=== PATIENT | male | born 1970 | race Two or more races ===

== ENCOUNTER 2020-04-13 07:11 | Inpatient (IN) | payer BC, OTHER, SELFPAY ==
[2020-04-13] VITALS (30 sets, daily range): BP systolic 101–126; BP diastolic 52–78
[~2020-04-13] VITALS: Ht 180.3 cm; Wt 78.3 kg
[2020-04-13] MEDS ORDERED: ZINC SULFATE 220mg CAP or TAB PO ONE (07:45)
[2020-04-13] MEDS ORDERED: ASCORBIC ACID 500 MG TAB PO ONE (07:45)
[2020-04-13] MEDS ORDERED: DexAMETHasone SOD PHOS 10MG/1ML VIAL INJ IV ONE (07:45)
[2020-04-13] MEDS ORDERED: hydrOXYchloroQUINE SULFATE 200 MG TAB PO ONE (07:45)
[2020-04-13] MEDS ORDERED: AZITHROMYCIN 500MG/ 250ML 250 ML IV ONE ×2 (07:45→08:02)
[2020-04-13] MEDS ORDERED: cefTRIAXone 1GM/50ML D5W 50 ML IV ONE (07:45)
[2020-04-13] MEDS ORDERED: ACETAMINOPHEN 650 mg PER 20 mL UD PO ONE ×2 (08:00→19:30)
[2020-04-13] MEDS ORDERED: LORazepam 2MG/ML-1ML VIAL IV ONE (08:00)
[2020-04-13 08:43] LABS: Basophils # (auto) 0 10 ^3/uL (0-0.2); Basophils % (auto) 0.4 % (0.0-2.0); Eosinophils # (auto) 0 10 ^3/uL (0-0.8); Hematocrit 45.2 % (41.0-53.0); Hemoglobin 15.6 g/dL (13.5-17.5); Lymphocytes # (auto) 0.2 10 ^3/uL (0.4-5.4); Lymphocytes % (auto) 2.3 % (10.0-50.0); Mean Corpuscular Hemoglobin 31.3 pg (28.0-32.0); Mean Corpuscular Hgb Conc. 34.5 g/dL (32.0-36.0); Mean Corpuscular Volume 90.6 fL (80.0-100.0); Monocytes # (auto) 0.5 10 ^3/uL (0-1.3); Monocytes % (auto) 4.7 % (0.0-12.0); Neutrophils # (auto) 9.7 10 ^3/uL (1.6-8.6); Neutrophils % (auto) 92.6 % (37.0-80.0); Nucleated Red Blood Cells % 0.2 %; Platelet Count (auto) 324 10^3/uL (140-450); Red Blood Cells 4.99 10^6/uL (4.5-5.90); Red Cell Distribution Width 13.8 % (11.8-14.3); White Blood Cell 10.5 10^3/uL (4.4-10.8)
[2020-04-13 08:56] LABS: Albumin 2.7 g/dL (3.4-5.0); Calcium 8.4 mg/dL (8.5-10.1); Potassium 3.6 mmol/L (3.5-5.1)
[2020-04-13 09:02] LABS: Lactic Acid w/Reflex 3.5 mmol/L (0.4-2.0)
[2020-04-13 09:03] LABS: Bilirubin, Total 1.1 mg/dL (0.2-1.0); Total Protein 7.6 g/dL (6.4-8.2)
[2020-04-13] MEDS ORDERED: MORPHINE SULF INJ 2 MG/ML SYRINGE 1ML IV PRN (09:45)
[2020-04-13] MEDS ORDERED: LORazepam 0.5 MG TAB PO PRN (09:45)
[2020-04-13] MEDS ORDERED: NITROGLYCERIN 0.4 MG SL TAB SL PRN (09:45)
[2020-04-13] MEDS ORDERED: FUROSEMIDE 20 MG/2 ML VIAL IV ONE (09:45)
[2020-04-13] MEDS ORDERED: DEXTROSE (50%) 50ML SYRG IV PRN (09:45)
--- NOTE | 2020-04-13 11:00 | NUR ---
REPORT REPORT RECEIVED FROM WELL LOGGING CAPTAIN MUD ANALYSIS.
--- NOTE | 2020-04-13 11:15 | NUR ---
Pt being admitted to ICU AUSTIN FERMIN admitted to ICU via gurney on ophthalmic medical assistant, and portable 02. Patient transfered to bed, connected to ICU monitoring and oxygen, and weighed by [facility]. Patient oriented to Nina Burnett, primary RN, unit, room, bed, and unit policies regarding patient care and visiting hours. All questions and concerns addressed, patient verbalized understanding. NOTE: PT IN ISOLATION FOR + COVID. PT AWAKE AND A/O X4. ABLE TO HELP REPSOTION SELF. PT ON NRB MASK AT 15 L/M WITH O2 SAT OF 89%. PT GOING TO BE PLACED ON HGH LOW O2. CALLED RESPIRATORY TO APPLY. RR 35-40. TELE ST AT 109. FEBRILE AT 100.9 RECTAL. Addendum: 04/13/20 at 2057 by Nina Burnett, ISAAK LUNGS CLEAR BUT VERY DIMINISHED THROUGHOUT. PT VERY SOB EVEN AT REST. PT HAS REFUSED TO BE INTUBATED AND MD/[facility] ADMINISTRATOR AWARE. . CHANGED TO HIGH FLOW O2 BY RT. KAT AT 60 L FLOW AND WITH 100% FIO2. ABD SOFT WITH HYPOACTIVE BOWEL SOUNDS. PER PT HE HAS HAD A VERY POOR APPETITE. LAST BM WAS YESTERDAY. VOIDING [place] AT HOME AND WITH A SWEENEY CATHETER PLACED HERE. CONTINUE TO MONITOR.
[2020-04-13 11:20] LABS: Magnesium 2.4 mg/dL (1.6-2.6)
[2020-04-13] MEDS ORDERED: PIPERACILLIN-TAZOB 3.375GM 100 ML IV SCH (12:00)
[2020-04-13] MEDS: ACCU-CHEK COMFORT CURVE STRIP VI SCH ×3 (13:20→22:00)
[2020-04-13] MEDS: InsuLIN REG 1unit/0.01ml Soln (100units/ml) SC SCH ×3 (13:23→21:54)
[2020-04-13 13:25] LABS: CRP High Sensitivity 37.39 mg/dL (< 0.3)
[2020-04-13] MEDS ORDERED: REMDESIVIR 200 MG in NS 210ml LOADING DOSE ADULT IV ONE ×2 (13:30→18:00)
[2020-04-13] MEDS: DOXYCYCLINE 100 MG TAB/CAP PO SCH ×2 (13:32→22:02)
[2020-04-13] MEDS: ASCORBIC ACID 1,000 MG TAB PO SCH (13:33)
[2020-04-13] MEDS: ZINC SULFATE 220mg CAP or TAB PO SCH (13:33)
[2020-04-13] MEDS: ENOXAPARIN SOD 80 MG/0.8ML SYRINGE SC SCH ×2 (13:34→22:00)
[2020-04-13] MEDS: CHOLECALCIFEROL (VITD3) 1,000UNIT=25mCg TAB PO SCH (13:47)
--- NOTE | 2020-04-13 13:50 | NUR ---
HAVE PROVIDED THE PT WITH THE CONSENT FOR ADMINISTRATION OF REMDESEVIR AND AFTER HE HAS READ IT THROUGH, PT STATES HE DOES NOT WANT TO TAKE THIS MEDICATION. ISAAK FLORES, AT THE BEDSIDE TO EXPLAIN THE MEDS WE HAE FOR HIM AND HE TOOK EVERYTHING BUT IS REFUSING THE REMDESEVIR. . CALLED AND NOTIFIED ROBI URIARTE NP. Addendum: 04/13/20 at 1724 by Nina Burnett RN ISAAK FLORES, TRANSLATED FOR ME PT IS FRISIAN SPEAKING .
[2020-04-13] MEDS: PIPERACILLIN-TAZOB 3.375GM 100 ML IV SCH ×2 (13:53→21:45)
[2020-04-13] MEDS ORDERED: ALBUTEROL SULF HFA 90MCG INH 200DOSE IN SCH (14:00)
[2020-04-13] MEDS: ALBUTEROL SULF 2.5 MG/0.5ML(0.5%) NEB SOLN NEB SCH ×2 (14:25→22:36)
[2020-04-13] MEDS: IPRATROPIUM BROM 0.5 MG/2.5ML INH SOL NEB SCH ×2 (14:25→22:36)
--- NOTE | 2020-04-13 14:30 | NUR ---
PT ATE ONLY THE FRUIT FROM HIS LUNCH AND IS DRINKING WATER. PT STATES "POOR APPETITE".
--- NOTE | 2020-04-13 16:32 | NUR ---
FAMILY UPDATED ON PATIENT'S STATUS REGARDING MATTHEW URIARTE REQUEST FOR CONFERENCE CALL WITH PATIENT, PATIENT'S SPOUSE AND NURSE TO TRANSLATE MEDICAL TREATMENT (THIS NURSE SANDRA MULLIGAN IS HELPING BEDSIDE NURSE VANDANA DURING TRANSLATION PROCESS). THIS NURSE SPOKE WITH PATIENT'S SON DMITRI HICKMAN AFTER PASSWORD VERIFICATION AND UPDATED ON PATIENT'S CURRENT STATUS, MEDICAL TREATMENT RECOMMENDATIONS AND PATIENT'S REFUSALS WELL MD'S REQUEST FOR CONFERENCE CALL TO CLARIFY THEIR UNDERSTANDING OF MEDICAL TREATMENT RECOMMENDED. DMITRI VERBALIZED UNDERSTANDING AND PROVIDED THIS NURSE WITH PATIENT'S SPOUSE NUMBER - JANUSZ . TELEPHONE CALL WAS MADE WITH JANUSZ AND UPDATED ON PATIENT STATUS WELL PREVIOUSLY DISCUSSED WITH DMITRI IN [place]. JANUSZ VERBALIZED UNDERSTANDING AND WILL AWAITING CALL FROM STAFF. MATTHEW DAWSON.
--- NOTE | 2020-04-13 17:10 | NUR ---
AT BEDSIDE ROBI URIARTE AT BEDSIDE ALONG WITH SANDRA-RN, VANDANA-ISAAK AND PATIENT'S SPOUSE JANUSZ OVER CONFERENCE CALL. MEDICAL TREATMENTS, RISKS AND BENEFITS WERE EXPLAINED TO BOTH PATIENT AND SPOUSE, ALL QUESTIONS AND CONCERNS ADDRESSED, BOTH PATIENT AND SPOUSE JANUSZ VERBALIZED UNDERSTANDING AND AGREED TO MOVE FORWARD WITH RECOMMENDED TREATMENTS. PATIENT WILL SIGN AUTHORIZATION FORMS FOR MEDICATION ADMINISTRATION.
[2020-04-13] MEDS: ACETAMINOPHEN 500 MG TAB PO PRN (17:45)
--- NOTE | 2020-04-13 18:00 | NUR ---
CONFERENCE HELD AT THE BEDSIDE WITH ROBI URIARTE NP, ISAAK FLORES, INDUSTRIAL HYGENIST, MYSELF, AND PT'S AND SON ON A CONFERENCE CALL WITH US. RISKS AND BENEFITS OF MEDS EXPLAINED TO FAMILY AND PT, BY MANAGER UNIVERSITY, AND SEVERITY OF PT'S ILLNESS AND POSSIBLE IF MEDS ARE NOT GIVEN. MANAGER UNIVERSITY ANSWERED QUESTIONS FROM THE PT AND PT'S FAMILY. THEY , PT, AND SON, ALL AGREED TO PROCEED WITH ADMINISTERING THE MEDICINES FOR COVID. WILL HAVE PT SIGN CONSENT , NOTIFY PHARMACIST, AND OBTAIN ORDERED MEDS.
--- NOTE | 2020-04-13 18:30 | NUR ---
THERE IS A RECOMMENDATION TO PRONE THE PT TOLERATED, BUT PT IS ON HIGH FLOW O2 AT 100 % AND WITH A 60L FLOW AND CANNOT TOLERATE THE HOB DOWN.
--- NOTE | 2020-04-13 18:45 | NUR ---
PT IN AGREEMENT TO PROCEED WITH MEDICATION TREATMENT FOR COVID. ADMINISTERING REMDESIVIR . INSTRUCTED PT TO NOTIFY THE RN FOR ANY NEW SYMPTOMS. HE EXPRESSED UNDERSTANDING. Addendum: 04/13/20 at 2020 by Nina Burnett RN GIVEN DINNER BUT PT "NOT HUNGRY".
[2020-04-13] MEDS ORDERED: methylPREDNISolone SOD SUCC 40 MG/ML VL IV ONE (19:30)
[2020-04-13] MEDS ORDERED: diphenhdrAMINE HCL 50 MG/1 ML VL IV ONE (19:30)
--- NOTE | 2020-04-13 19:30 | NUR ---
REPORT REPORT GIVEN TO CYNTHIA RNNGOC. CHECK ON PT DONE AT THE WINDOW.
--- NOTE | 2020-04-13 20:00 | NUR ---
Opening Shift Note: A&Ox4, resting in bed. Primary language is Zimbabwean: translation provided by CCT. Currently on 60 L/100% FiO2 high flow cannula; patient does not wear oxygen at home; pain level 0/10; currently bedrest, at baseline patient ambulates independently without the use of assistive devices. Bed locked in lowest position, side rails up x2, and call light within reach. Patient is positive for COVID-19; all precautions in place. Skin intact. IV 20 g left forearm IID inserted on 04/13/20. Fishman catheter inserted on 04/13/20 for strict I/O. Patient is a DNI; paperwork signed in the front of patient's hard chart. POC discussed and questions answered. Will continue to round and reposition prn.
[2020-04-13] MEDS: TOCILIZUMAB 400 MG in SODIUM CHL 0.9% 80 ML IV SCH (20:30)
[2020-04-13] MEDS: methylPREDNISolone SOD SUCC 40 MG/ML VL IV SCH (22:00)
[2020-04-13 22:02] LABS: Urine Bacteria NONE SEEN /hpf (None Seen); Urine Blood 2+ /uL (Negative); Urine Hyaline Cast FEW /lpf (0 - 2); Urine Mucus FEW (None Seen); Urine Specific Gravity 1.042 (1.001-1.035); Urine WBC 4 /hpf (0 - 3)
[2020-04-13 22:19] LABS: Amphetamine Screen, Urine NEGATIVE (NEGATIVE); Barbiturate Scree,Urine NEGATIVE (NEGATIVE); Benzodiazephine Screen, Urine NEGATIVE (NEGATIVE); Cannabinoid Screen, Urine NEGATIVE (NEGATIVE); Cocaine Screen, Urine NEGATIVE (NEGATIVE); Opiate Scree,Urine NEGATIVE (NEGATIVE); Phencyclidine Screen, Urine NEGATIVE (NEGATIVE)
[2020-04-13 22:23] LABS: Alcohol, Urine < 3.0 mg/dL (0-10)
--- NOTE | 2020-04-13 22:39 | NUR ---
Respiratory note: AT BEDSIDE FOR MED NEB TX AND HFNC CHECK. TX GIVEN VIA AEROGEN. NO ADVERSE REACTION NOTED. ON ASSESSMENT PT IS NOTED TO BE DIAPHORETIC BUT NOT SOB. PT ICELANDIC SPEAKER ONLY. PT COMMUNICATED HE IS NOT BRINGING UP MUCH PHLEGM AND HIS CHEST DOES NOT HURT WHEN HE BREATHES. WILL CONTINUE TO MONITOR.
[2020-04-14] VITALS (47 sets, daily range): BP systolic 101–129; BP diastolic 62–81
[2020-04-14] MEDS ORDERED: FUROSEMIDE 20 MG/2 ML VIAL IV ONE (00:15)
[2020-04-14] MEDS: ACETAMINOPHEN 500 MG TAB PO PRN ×2 (03:00→20:40)
[2020-04-14] MEDS: PIPERACILLIN-TAZOB 3.375GM 100 ML IV SCH ×4 (03:00→21:30)
--- NOTE | 2020-04-14 03:15 | NUR ---
Respiratory note: LPM INCREASED VIA HFNC, NOW AT 70LPM STILL ON 100%. PTS SATS 88-90%.
--- NOTE | 2020-04-14 03:30 | NUR ---
Page to pianos and organs salesperson hospitalist: Patient is 70L/100% FiO2 with frequent drops in the low to mid 80%. RT notified. Page sent to pianos and organs salesperson hospitalist for bipap/cpap initiation. Patient is a DNI. Patient on CPAP mode saturation is mid to high 90s.
[2020-04-14 04:32] LABS: Basophils # (auto) 0 10 ^3/uL (0-0.2); Basophils % (auto) 0.2 % (0.0-2.0); Eosinophils # (auto) 0 10 ^3/uL (0-0.8); Hematocrit 44.1 % (41.0-53.0); Hemoglobin 14.8 g/dL (13.5-17.5); Lymphocytes # (auto) 0.6 10 ^3/uL (0.4-5.4); Lymphocytes % (auto) 4.7 % (10.0-50.0); Mean Corpuscular Hgb Conc. 33.6 g/dL (32.0-36.0); Monocytes # (auto) 0.5 10 ^3/uL (0-1.3); Monocytes % (auto) 3.8 % (0.0-12.0); Neutrophils % (auto) 91.3 % (37.0-80.0); Platelet Count (auto) 351 10^3/uL (140-450); Red Blood Cells 4.79 10^6/uL (4.5-5.90); Red Cell Distribution Width 13.8 % (11.8-14.3); White Blood Cell 13.2 10^3/uL (4.4-10.8)
[2020-04-14 04:47] LABS: Potassium 3.5 mmol/L (3.5-5.1)
[2020-04-14 04:52] LABS: BUN/Creatinine Ratio 19.7; Calcium 8.5 mg/dL (8.5-10.1)
[2020-04-14 05:01] LABS: Albumin 2.1 g/dL (3.4-5.0); Bilirubin, Total 0.6 mg/dL (0.2-1.0); Total Protein 7.2 g/dL (6.4-8.2)
[2020-04-14] MEDS: IPRATROPIUM BROM 0.5 MG/2.5ML INH SOL NEB SCH ×3 (05:41→22:29)
[2020-04-14] MEDS: ALBUTEROL SULF 2.5 MG/0.5ML(0.5%) NEB SOLN NEB SCH ×3 (05:41→22:29)
--- NOTE | 2020-04-14 06:00 | NUR ---
Patient bathe/linen change Patient refused bed bath. Skin integrity assessed for any changes. Linens and gown changed. Patient repositioned for comfort.
[2020-04-14] MEDS: ACCU-CHEK COMFORT CURVE STRIP VI SCH ×4 (06:41→20:40)
[2020-04-14] MEDS: InsuLIN REG 1unit/0.01ml Soln (100units/ml) SC SCH ×4 (06:41→20:39)
--- NOTE | 2020-04-14 07:00 | NUR ---
REPORT RECEIVED FROM QUALITY TECH NURSE. PATIENT RESTING IN BED AT THIS TIME. RESPIRATIONS EVEN BUT LABORED RR 43 PATIENT ON CPAP SATURATIONS 97% ON 100% FIO2. BED IN LOW POSITION, CALL LIGHT IN REACH. WILL CONTINUE TO MONITOR.
[2020-04-14] MEDS ORDERED: diphenhdrAMINE HCL 50 MG/1 ML VL IV ONE (07:30)
[2020-04-14] MEDS ORDERED: methylPREDNISolone SOD SUCC 40 MG/ML VL IV ONE (07:30)
[2020-04-14] MEDS ORDERED: ACETAMINOPHEN 650 mg PER 20 mL UD PO ONE (07:30)
[2020-04-14] MEDS: TOCILIZUMAB 400 MG in SODIUM CHL 0.9% 80 ML IV SCH (08:39)
[2020-04-14] MEDS ORDERED: MORPHINE SULF INJ 2 MG/ML SYRINGE 1ML IV PRN (08:45)
[2020-04-14] MEDS ORDERED: HYDROcodone-ACET 5/325MG TAB PO PRN (08:45)
--- NOTE | 2020-04-14 09:00 | NUR ---
ROBI URIARTE REGIONAL BUSINESS MANAGER AT BEDSIDE TO ASSESS PATIENT AND DISCUSS PLAN OF CARE. MD MADE AWARE OF PATIENTS AMOUNT OF TYLENOL GIVEN AT THIS TIME WITHIN A 24 HOUR PERIOD. PER ROBI NO MORE THAT 4GM TOTAL. REGIONAL BUSINESS MANAGER UPDATED PATIENTS SON KENZIE ON PATIENT STATUS. ALL QUESTIONS AND CONCERNS ADDRESSED AT THIS TIME. ALL ORDERS NOTED IN CHART.
[2020-04-14 09:41] LABS: CRP High Sensitivity 43.35 mg/dL (< 0.3)
[2020-04-14] MEDS: methylPREDNISolone SOD SUCC 40 MG/ML VL IV SCH ×2 (10:00→20:36)
[2020-04-14] MEDS: CHOLECALCIFEROL (VITD3) 1,000UNIT=25mCg TAB PO SCH (11:32)
[2020-04-14] MEDS: ZINC SULFATE 220mg CAP or TAB PO SCH (11:32)
[2020-04-14] MEDS: ASCORBIC ACID 1,000 MG TAB PO SCH (11:32)
[2020-04-14] MEDS: PANTOPRAZOLE 40 MG TAB PO SCH (11:32)
[2020-04-14] MEDS: ENOXAPARIN SOD 80 MG/0.8ML SYRINGE SC SCH ×2 (11:33→20:40)
[2020-04-14] MEDS: DOXYCYCLINE 100 MG TAB/CAP PO SCH ×2 (11:33→20:36)
--- NOTE | 2020-04-14 11:40 | NUR ---
DR HEBERT AT BEDSIDE TO ASSESS PATIENT AND DISCUSS PLAN OF CARE. ALL QUESTIONS AND CONCERNS ADDRESSED AT THIS TIME.
--- NOTE | 2020-04-14 12:15 | NUR ---
DR HEBERT UPDATED VIA TELEPHONE ON PATIENT STATUS. ALL QUESTIONS AND CONCERNS ADDRESSED AT THIS TIME. WILL CONTINUE TO MONITOR.
--- NOTE | 2020-04-14 13:15 | NUR ---
PT WAS TAKEN OFF BIPAP AND PLACED ON HFNC FLOW OF 60, FIO2 100. PT REPOSITIONED IN BED TO HIGH FOWLERS. PT ABLE TO EAT LUNCH. PT TOLERATED WELL. PT MAINTAINED 90%-93% O2 SATS WHILE EATING LUNCH.
--- NOTE | 2020-04-14 13:35 | NUR ---
PT WAS PLACED BACK ON BIPAP(CPAP MODE) ON SAME SETTINGS. WILL CONTINUE TO MONITOR PT.
[2020-04-14] MEDS: REMDESIVIR 100mg in NS 230ml DAILYx4DAYS (NO VENT) IV SCH (16:27)
[2020-04-14] MEDS: FUROSEMIDE 20 MG/2 ML VIAL IV SCH (17:33)
--- NOTE | 2020-04-14 19:45 | NUR ---
Opening Shift Note: A&Ox4, resting in bed. Primary language is Filipino: able to speak Korean as second language moderately. Currently on CPAP 100%, pressure 14; patient does not wear oxygen at home; pain level 0/10; currently bedrest, at baseline patient ambulates independently without the use of assistive devices. Bed locked in lowest position, side rails up x2, and call light within reach. Patient is positive for COVID-19; all precautions in place. Skin intact. IV 20 g left forearm IID inserted on 04/13/20. Fishman catheter inserted on 04/13/20 for strict I/O. Patient is a DNI; paperwork signed in the front of patient's hard chart. POC discussed and questions answered. Will continue to round and reposition prn.
--- NOTE | 2020-04-14 20:20 | NUR ---
Respiratory note: PT REQUESTED TO BE TAKEN OFF CPAP AND GO ON HFNC FOR DINNER. PT TOLERATING HFNC @ 60LPM, FIO2 90%. RN AT BEDSIDE WITH PT.
[2020-04-15] VITALS (40 sets, daily range): BP systolic 97–127; BP diastolic 60–85
[2020-04-15] MEDS: PIPERACILLIN-TAZOB 3.375GM 100 ML IV SCH ×4 (03:00→21:00)
[2020-04-15 04:48] LABS: Basophils # (auto) 0 10 ^3/uL (0-0.2); Basophils % (auto) 0.2 % (0.0-2.0); Eosinophils # (auto) 0 10 ^3/uL (0-0.8); Hematocrit 43.1 % (41.0-53.0); Hemoglobin 14.3 g/dL (13.5-17.5); Lymphocytes # (auto) 0.3 10 ^3/uL (0.4-5.4); Lymphocytes % (auto) 2.2 % (10.0-50.0); Mean Corpuscular Hemoglobin 30.5 pg (28.0-32.0); Mean Corpuscular Hgb Conc. 33.2 g/dL (32.0-36.0); Monocytes # (auto) 0.6 10 ^3/uL (0-1.3); Neutrophils # (auto) 14.4 10 ^3/uL (1.6-8.6); Neutrophils % (auto) 93.6 % (37.0-80.0); Platelet Count (auto) 436 10^3/uL (140-450); Red Blood Cells 4.69 10^6/uL (4.5-5.90); Red Cell Distribution Width 13.5 % (11.8-14.3); White Blood Cell 15.4 10^3/uL (4.4-10.8)
[2020-04-15 05:08] LABS: Potassium 3.4 mmol/L (3.5-5.1)
[2020-04-15 05:24] LABS: Albumin 2.2 g/dL (3.4-5.0); BUN/Creatinine Ratio 23.8; Bilirubin, Total 0.5 mg/dL (0.2-1.0); CRP High Sensitivity 18.1 mg/dL (< 0.3); Calcium 8.5 mg/dL (8.5-10.1); Total Protein 6.9 g/dL (6.4-8.2)
[2020-04-15] MEDS: FUROSEMIDE 20 MG/2 ML VIAL IV SCH ×2 (05:30→18:47)
[2020-04-15] MEDS: ACCU-CHEK COMFORT CURVE STRIP VI SCH ×4 (06:00→21:59)
[2020-04-15] MEDS: InsuLIN REG 1unit/0.01ml Soln (100units/ml) SC SCH ×4 (06:00→21:58)
--- NOTE | 2020-04-15 06:00 | NUR ---
Patient bathe/linen change Patient refused bed bath. Skin integrity assessed for any changes. Linens and gown changed. Patient repositioned for comfort.
[2020-04-15] MEDS: ALBUTEROL SULF 2.5 MG/0.5ML(0.5%) NEB SOLN NEB SCH ×4 (06:36→22:28)
[2020-04-15] MEDS: IPRATROPIUM BROM 0.5 MG/2.5ML INH SOL NEB SCH ×4 (06:36→22:28)
--- NOTE | 2020-04-15 10:50 | NUR ---
FAMILY UPDATED ON PATEINT'S STATUS PHONE CALL TO PATIENT'S FAMILY MADE PER PATIENT REQUEST HE IS ON BIPAP. PATIENT SHOWED TEXT MESSAGE HE RECEIVED FROM SON DMITRI WHERE IT STATES PATIENT'S SPOUSE IS FEELING WORSE TODAY". THIS NURSE NOTIFIED PATIENT THAT CALL WILL BE MADE TO DISCUSS SPOUSE'S OPTIONS. PATIENT NODDED HEAD "YES", IN AGREEMENT. THIS NURSE SPOKE WITH PATIENT'S SON DMITRI AND PATIENT'S JANUSZ IN [place] AND ENCOURAGED TO COME TO HOSPITAL IF CONDITION IS WORSENING. ALL FAMILY MEMBERS VERBALIZED UNDERSTANDING.
--- NOTE | 2020-04-15 11:23 | NUR ---
HOSPITALIST AT BEDSIDE DR SCHILLING UPDATED ON PATIENT'S STATUS, MORNING LABS AND PENDING ORAL MEDICATIONS UNTIL LUNCH WHEN BIPAP MACHINE WILL BE REMOVED AND REPLACED WITH OXYMIZER FOR LUNCH. ORDERS FOR POTASSIUM REPLACEMENT RECEIVED.
[2020-04-15] MEDS ORDERED: POTASSIUM CHL 20 Meq TABLET PO ONE (12:30)
[2020-04-15] MEDS: PANTOPRAZOLE 40 MG TAB PO SCH (12:32)
[2020-04-15] MEDS: ZINC SULFATE 220mg CAP or TAB PO SCH (12:32)
[2020-04-15] MEDS: methylPREDNISolone SOD SUCC 40 MG/ML VL IV SCH ×2 (12:32→21:56)
[2020-04-15] MEDS: DOXYCYCLINE 100 MG TAB/CAP PO SCH ×2 (12:33→21:56)
[2020-04-15] MEDS: CHOLECALCIFEROL (VITD3) 1,000UNIT=25mCg TAB PO SCH (12:33)
[2020-04-15] MEDS: ASCORBIC ACID 1,000 MG TAB PO SCH (12:33)
[2020-04-15] MEDS: ENOXAPARIN SOD 80 MG/0.8ML SYRINGE SC SCH ×2 (12:33→21:58)
--- NOTE | 2020-04-15 15:42 | NUR ---
PRONING/BM PATIENT PLACED ON BIPAP AND IN PRONE POSITION PER MD ORDERS. PATIENT ABLE TO TURN SELF WITH MINIMAL ASSISTANCE, TOLERATED WELL. PATIENT CLEANSED OF SMEAR BM PRIOR TO TURNING AND TOLERATED WELL. PATIENT VS - HR 95, O2 SATS 92% ON 45% FIO2, RR. 43 AND BP 113/74. PATIENT DENIES PAIN OR DISCOMFORT, THUMBS UP WHEN ASKED HOW HE IS DOING. CALL LIGHT WITHIN REACH. WILL CONTINUE TO MONITOR.
[2020-04-15] MEDS: REMDESIVIR 100mg in NS 230ml DAILYx4DAYS (NO VENT) IV SCH (16:30)
[2020-04-15] MEDS ORDERED: GABA300C10 PO (16:52)
[2020-04-15] MEDS ORDERED: ASPI-498 PO (16:52)
[2020-04-15] MEDS ORDERED: FOLI1TAB6 PO (16:52)
[2020-04-15] MEDS ORDERED: LEVO500T21 PO (16:52)
[2020-04-15] MEDS ORDERED: OME20T PO (16:53)
[2020-04-15] MEDS ORDERED: PANT40TA2 PO (16:53)
[2020-04-15] MEDS ORDERED: ROPI1TAB2 PO (16:54)
[2020-04-15] MEDS ORDERED: TIZA4TAB9 PO (16:55)
[2020-04-15] MEDS ORDERED: TRAM50TA2 PO (16:55)
[2020-04-15] MEDS ORDERED: CYAN500T15 PO (16:56)
[2020-04-15] MEDS ORDERED: TRAZ100T3 PO (16:56)
[2020-04-15] MEDS ORDERED: CALC-437 PO ×2 (16:59→17:00)
[2020-04-15] MEDS ORDERED: MULTLIQ38 OR (17:04)
--- NOTE | 2020-04-15 18:32 | NUR ---
Respiratory note: RECEIVED PT ON BIPAP B6, BIPAP IS CONNECTED TO RED OUTLET AND O2 SOURCE ALARMS ARE SET AND AUDIBLE AMBU BAG AND MASK AT BEDSIDE. PT IN PRONE POSITION AT THIS TIME. CURRENT TEMP READS 99.0F. WILL CONTINUE TO MONITOR Q2H.
--- NOTE | 2020-04-15 19:00 | NUR ---
Opening Shift Note Assumed care of patient, awake and alert, Sao T[place]an speaking only. Primary RN speaks S[place] and updated patient on plan of care and answered all questions and concerns. No S/S of distress/SOB or pain. Instructed on POC and to call for assist PRN, will continue to monitor for changes Q1hr and PRN.
--- NOTE | 2020-04-15 20:20 | NUR ---
Respiratory note: ROUTINE VENT CHECK DONE FROM DOOR, PER COVID PRECAUTIONS. PT NOT IN PRONE POSITION ANYMORE DID NOT TOLERATE MORE AT THIS TIME, WILL ATTEMPT T/O NIGHT TO PRONE AGAIN. WILL CONTINUE TO MONITOR. Addendum: 04/16/20 at 0045 by Cayla Doe, RT PT ON BIPAP NOT VENT. BIPAP CHECK WAS DONE FROM DOOR NOT VENT CHECK.
--- NOTE | 2020-04-15 22:28 | NUR ---
Respiratory note: AT BEDSIDE FOR ROUTINE BIPAP CHECK AND MED NEB TX. BS ARE DIMINISHED T/O, MED NEB TX GIVEN INLINE VIA AEROGEN. NO ADVERSE REACTION NOTED. WILL CONTINUE TO MONITOR.
[2020-04-16] VITALS (58 sets, daily range): BP systolic 101–124; BP diastolic 67–87
--- NOTE | 2020-04-16 00:32 | NUR ---
Respiratory note: ROUTINE BIPAP CHECK DONE FROM DOOR, PER COVID PRECAUTIONS. PT IS NOTED TO BE COMFORTABLY SLEEPING. PTS CURRENT TEMP READS 98.8F. WILL CONTINUE TO MONITOR.
--- NOTE | 2020-04-16 02:29 | NUR ---
Respiratory note: ROUTINE BIPAP CHECK DONE FROM DOOR, PER COVID-19 PRECAUTIONS. PT IS NOTED TO BE COMFORTABLY SLEEPING AT THIS TIME. PTS CURRENT TEMP READS 99.0F. WILL CONTINUE TO MONITOR.
[2020-04-16] MEDS: PIPERACILLIN-TAZOB 3.375GM 100 ML IV SCH ×4 (03:00→20:31)
--- NOTE | 2020-04-16 04:11 | NUR ---
Respiratory note: END OF SHIFT BIPAP CHECK DONE FROM DOOR DUE TO COVID-19 PRECAUTIONS, CURRENT TEMP READS 99.0F. NO CHANGES MADE WILL HAVE DAY SHIFT CONTINUE POC.
[2020-04-16 04:30] LABS: Eosinophils # (auto) 0 10 ^3/uL (0-0.8); Lymphocytes # (auto) 0.3 10 ^3/uL (0.4-5.4); Lymphocytes % (auto) 2.6 % (10.0-50.0); Neutrophils # (auto) 10.3 10 ^3/uL (1.6-8.6); White Blood Cell 11.1 10^3/uL (4.4-10.8)
[2020-04-16 04:33] LABS: Basophils # (auto) 0 10 ^3/uL (0-0.2); Basophils % (auto) 0.3 % (0.0-2.0); Hematocrit 43.1 % (41.0-53.0); Hemoglobin 14.6 g/dL (13.5-17.5); Mean Corpuscular Hemoglobin 31.2 pg (28.0-32.0); Mean Corpuscular Hgb Conc. 33.9 g/dL (32.0-36.0); Mean Corpuscular Volume 92.2 fL (80.0-100.0); Monocytes # (auto) 0.4 10 ^3/uL (0-1.3); Neutrophils % (auto) 93.1 % (37.0-80.0); Platelet Count (auto) 500 10^3/uL (140-450); Red Blood Cells 4.68 10^6/uL (4.5-5.90); Red Cell Distribution Width 13.5 % (11.8-14.3)
[2020-04-16 04:52] LABS: Calcium 8.6 mg/dL (8.5-10.1); Magnesium 2.8 mg/dL (1.6-2.6); Potassium 3.8 mmol/L (3.5-5.1)
[2020-04-16 04:54] LABS: BUN/Creatinine Ratio 33.8
[2020-04-16] MEDS: IPRATROPIUM BROM 0.5 MG/2.5ML INH SOL NEB SCH ×3 (05:57→22:03)
[2020-04-16] MEDS: ALBUTEROL SULF 2.5 MG/0.5ML(0.5%) NEB SOLN NEB SCH ×3 (05:57→22:03)
[2020-04-16] MEDS: FUROSEMIDE 20 MG/2 ML VIAL IV SCH ×2 (06:05→19:00)
[2020-04-16] MEDS: InsuLIN REG 1unit/0.01ml Soln (100units/ml) SC SCH ×4 (06:15→21:00)
[2020-04-16] MEDS: ACCU-CHEK COMFORT CURVE STRIP VI SCH ×4 (06:23→21:07)
--- NOTE | 2020-04-16 06:40 | NUR ---
Respiratory note: INCREASED FIO2 TO 600% POST ABG RESULT. RN AWARE.
--- NOTE | 2020-04-16 06:45 | NUR ---
FIO2 was increased to 60% d/t ABG results showing low PO2 levels.
--- NOTE | 2020-04-16 08:40 | NUR ---
AM ASSESSMENT COMPLETED. I SWITCHED PT FROM BIPAP TO HIGH FLOW AT 40L AT 90% FIO2 WHILE HE EATS HIS BREAKFAST. PT WAS REQUESTING HIS BREAKFAST TRAY. PT WAS HUNGRY THIS AM. LS CLEAR AND DIMINISHED THROUGH OUT.
--- NOTE | 2020-04-16 08:40 | NUR ---
Respiratory note: PT TAKEN OFF CPAP BY RN AND PLACED ON HFNC TO EAT BREAKFAST. PT APPEARS COMFORTABLE.PT DID NOT WANT TO GO BACK ON CPAP AFTER BREAKFAST. HE STATED HE FELT COMFORTABLE ON THE HFNC. WILL CONTINUE TO MONITOR PT. RN AWARE.
[2020-04-16] MEDS: methylPREDNISolone SOD SUCC 40 MG/ML VL IV SCH ×2 (10:06→21:21)
[2020-04-16] MEDS: ENOXAPARIN SOD 80 MG/0.8ML SYRINGE SC SCH ×2 (10:06→21:10)
[2020-04-16] MEDS: ASCORBIC ACID 1,000 MG TAB PO SCH (10:07)
[2020-04-16] MEDS: ZINC SULFATE 220mg CAP or TAB PO SCH (10:07)
[2020-04-16] MEDS: DOXYCYCLINE 100 MG TAB/CAP PO SCH ×2 (10:07→21:22)
[2020-04-16] MEDS: PANTOPRAZOLE 40 MG TAB PO SCH (10:08)
[2020-04-16] MEDS: CHOLECALCIFEROL (VITD3) 1,000UNIT=25mCg TAB PO SCH (10:08)
--- NOTE | 2020-04-16 11:43 | NUR ---
Nutrition Assessment Notes please see attached link for complete assessment Est. Energy Needs BW 84 [id number] kcal (25-30 kcal/kg BW), Est. Protein Needs: 84-100 gms/day (1.0-1.2 gms/kg BW). Addendum: 04/16/20 at [address] Amended: Links added.
--- NOTE | 2020-04-16 13:33 | NUR ---
DR. SCHILLING IN TO SEE PT. WANTS PT TO USE INCENTIVE SPIROMETER. NO OTHER ORDERS RECEIVED AT THIS TIME.
--- NOTE | 2020-04-16 14:00 | NUR ---
BM ELIMINATION PT HAD A LARGE BM. PT WAS C/O HAVING ABDOMINAL CRAMPING STATING THAT HE NEEDED TO MOVE HIS BOWELS THAT HE HAS BEEN CONSTIPATED SINCE ADMISSION. PT WAS ABLE TO MOVE HIS BOWELS WITHIN 10 MIN AFTER LAYING ON BED POOL. ASSISTED PT WITH HYGIENE. LINEN CHANGED AND REPOSITIONED FOR COMFORT.
--- NOTE | 2020-04-16 19:00 | NUR ---
Opening Shift Note Assumed care of patient, awake and alert. Patient updated on plan of care and answered all questions and concerns. No S/S of distress/SOB or pain. Instructed on POC and to call for assist PRN, will continue to monitor for changes Q1hr and PRN. Patient currently using high flow. Dr. Santoyo currently rounding on patient and wants patient placed back on CPAP.
[2020-04-16] MEDS: REMDESIVIR 100mg in NS 230ml DAILYx4DAYS (NO VENT) IV SCH (19:01)
[2020-04-17] VITALS (60 sets, daily range): BP systolic 101–120; BP diastolic 63–85
[2020-04-17] MEDS: PIPERACILLIN-TAZOB 3.375GM 100 ML IV SCH ×4 (03:00→21:01)
[2020-04-17 04:16] LABS: Basophils # (auto) 0 10 ^3/uL (0-0.2); Eosinophils # (auto) 0 10 ^3/uL (0-0.8); Lymphocytes # (auto) 0.3 10 ^3/uL (0.4-5.4); Lymphocytes % (auto) 3.4 % (10.0-50.0); Monocytes # (auto) 0.3 10 ^3/uL (0-1.3); Red Cell Distribution Width 13.7 % (11.8-14.3)
[2020-04-17 04:19] LABS: Basophils % (auto) 0.1 % (0.0-2.0); Hematocrit 46.3 % (41.0-53.0); Hemoglobin 15.3 g/dL (13.5-17.5); Mean Corpuscular Hemoglobin 30.5 pg (28.0-32.0); Mean Corpuscular Hgb Conc. 33.1 g/dL (32.0-36.0); Mean Corpuscular Volume 92.1 fL (80.0-100.0); Monocytes % (auto) 3.5 % (0.0-12.0); Neutrophils # (auto) 7.6 10 ^3/uL (1.6-8.6); Platelet Count (auto) 496 10^3/uL (140-450); Red Blood Cells 5.03 10^6/uL (4.5-5.90); White Blood Cell 8.2 10^3/uL (4.4-10.8)
[2020-04-17 04:39] LABS: Albumin 2.5 g/dL (3.4-5.0); Calcium 8.7 mg/dL (8.5-10.1); Potassium 3.9 mmol/L (3.5-5.1)
[2020-04-17 04:47] LABS: BUN/Creatinine Ratio 31.8; Bilirubin, Total 0.6 mg/dL (0.2-1.0); CRP High Sensitivity 5.44 mg/dL (< 0.3); Total Protein 6.7 g/dL (6.4-8.2)
[2020-04-17] MEDS: FUROSEMIDE 20 MG/2 ML VIAL IV SCH (05:37)
[2020-04-17] MEDS: InsuLIN REG 1unit/0.01ml Soln (100units/ml) SC SCH ×4 (05:52→22:20)
[2020-04-17] MEDS: ACCU-CHEK COMFORT CURVE STRIP VI SCH ×4 (06:01→22:20)
[2020-04-17] MEDS: IPRATROPIUM BROM 0.5 MG/2.5ML INH SOL NEB SCH ×3 (06:39→21:41)
[2020-04-17] MEDS: ALBUTEROL SULF 2.5 MG/0.5ML(0.5%) NEB SOLN NEB SCH ×3 (06:39→21:41)
--- NOTE | 2020-04-17 08:23 | NUR ---
TOOK PT OFF CPAP AND PLACED ON HIGH FLOW TO EAT BREAKFAST, SETTINGS 55LPM, FIO2 80%. HIGH FLOW UNIT PLUGGED INTO RED OUTLET, PT FITTED WITH SIZE MEDIUM CANNULA, NO SKIN BREAKDOWN NOTED. PT TOLERATING WELL, SITTING UP IN BED, NO DISTRESS NOTED. WILL CONTINUE TO MONITOR.
--- NOTE | 2020-04-17 09:40 | NUR ---
PT BACK ON CPAP TOOK PT OFF HIGH FLOW AND PLACED BACK ON CPAP PER PT'S REQUEST. PT TOLERATING WELL, RESTING IN BED WITH NO DISTRESS NOTED. ALARMS SET AND AUDIBLE. MASK PLACED WITH [id number] OVER NOSE/AROUND MOUTH, NO BREAKDOWN NOTED. RN AWARE OF CHANGES. WILL CONTINUE TO MONITOR.
[2020-04-17] MEDS: ENOXAPARIN SOD 80 MG/0.8ML SYRINGE SC SCH ×2 (10:28→21:52)
[2020-04-17] MEDS: methylPREDNISolone SOD SUCC 40 MG/ML VL IV SCH (10:28)
[2020-04-17] MEDS: DOXYCYCLINE 100 MG TAB/CAP PO SCH ×2 (10:29→21:52)
[2020-04-17] MEDS: PANTOPRAZOLE 40 MG TAB PO SCH (10:29)
[2020-04-17] MEDS: ZINC SULFATE 220mg CAP or TAB PO SCH (10:29)
[2020-04-17] MEDS: CHOLECALCIFEROL (VITD3) 1,000UNIT=25mCg TAB PO SCH (10:29)
[2020-04-17] MEDS: ASCORBIC ACID 1,000 MG TAB PO SCH (10:29)
--- NOTE | 2020-04-17 13:15 | NUR ---
ON HIGH FLOW TOOK PT OFF CPAP AND PLACED ON HIGH FLOW TO EAT LUNCH. ON SETTINGS: 40LPM, FIO2 80%. PT TOLERATING WELL, SITTING UP IN BED WITH NO S/S OF RESPIRATORY DISTRESS NOTED. HR 94, RR 26, SPO2 95%. RN AT BEDSIDE AND AWARE. WILL CONTINUE TO MONITOR.
--- NOTE | 2020-04-17 14:37 | NUR ---
DR. HEBERT ROUNDING ON PT. PT IN TO SEE PT. MD DISCUSSING POC WITH PT IN [place]. WILL DISCUSS POC WITH MD ONCE MD IS OUT OF PT'S ROOM.
--- NOTE | 2020-04-17 14:58 | NUR ---
PT BACK ON CPAP TOOK PT OFF HIGH FLOW AND PLACED BACK ON CPAP PER PT'S REQUEST. PT TOLERATING WELL, NO DISTRESS NOTED. MENDEB TX ADMINSTERED INLINE VIA AEROGEN, NO ADVERSE REACTIONS NOTED. ALARMS SET AND AUDIBLE. WILL CONTINUE TO MONITOR.
--- NOTE | 2020-04-17 15:05 | NUR ---
assessment Patient is a 50 year old male who is in ICU on Cpap trial. Per patients son Leo Yang [phone] who is patients emergency contact prior to admission patient lived home with family and was independent. Per Leo Patient patient was having shortness of breath and 911 was called. Patient was brought to ER and was noted to have a fever of 105.5 and patient was hypoxic. Patient had refused intubation. Per Leo patients PCP is Dr James in [place]. Leo informed me patient still works. Per Leo family thinks patient was exposed to Covid at work. Patient has tested positive for Covid 19. Family members are self isolating. Leo informed me patient does have insurance [employer]. Leo is contacting admitting with insurance information. I informed Leo that patients post discharge needs to be determined once patient is down graded from ICU and prior to discharge. Leo verbalized understanding. Addendum: 04/17/20 at 1513 by Lorie CHÁVEZ Amended: Links added.
--- NOTE | 2020-04-17 18:32 | NUR ---
RT NOTE ISAAK KOCH TOOK PT OFF CPAP AND PLACED ON HIGH FLOW TO BATHE AND EAT DINNER. ON SETTINGS: 40LPM, FIO2 80%. PT TOLERATING WELL, SITTING UP IN BED WITH NO S/S OF RESPIRATORY DISTRESS NOTED. RN AT BEDSIDE AND AWARE. WILL CONTINUE TO MONITOR. Addendum: 04/17/20 at 1833 by Judith Dixon RT Amended: Links added.
[2020-04-17] MEDS: REMDESIVIR 100mg in NS 230ml DAILYx4DAYS (NO VENT) IV SCH (18:58)
--- NOTE | 2020-04-17 19:00 | NUR ---
Opening Shift Note Assumed care of patient, awake and alert. Patient updated on plan of care and answered all questions and concerns. No S/S of distress/SOB or pain. Instructed on POC and to call for assist PRN, will continue to monitor for changes Q1hr and PRN. Patient currently using high flow.
--- NOTE | 2020-04-17 21:42 | NUR ---
RT NOTE PT REMOVED FROM HFNC SET AT 45L, 70% AND PLACED PT ON BIPAP #B6 ON CPAP MODE WITH MEDIUM MASK. PROTECTA-GEL IN PLACE. NO SKIN BREAKDOWN NOTED. BIPAP IS PLUGGED TO RED OUTLET. ALARMS ARE ON AND SET TO 7. PT CAN BE SEEN FROM CLOSED GLASS DOOR. BILATERAL BS ARE CLEAR/DIMINISHED. HHN GIVEN INLINE WITH 2.5 MG ALBUTEROL AND 0.5 MG ATROVENT VIA AEROGEN WITHOUT ADVERSE REACTION NOTED. PT APPEARS COMFORTABLE AT THIS TIME. CONT ORDERED. POX 96% Addendum: 04/17/20 at 2150 by Judith Dixon RT Amended: Links added.
[2020-04-17] MEDS: DexAMETHasone SOD PHOS 4 MG/1ML SDV INJ IV SCH (21:52)
--- NOTE | 2020-04-17 22:24 | NUR ---
RT NOTE PT ON BIPAP #B6 ON CPAP MODE WITH MEDIUM MASK. PROTECTA-GEL IN PLACE. NO SKIN BREAKDOWN NOTED. BIPAP IS PLUGGED TO RED OUTLET. ALARMS ARE ON AND SET TO 7. PT CAN BE SEEN FROM CLOSED GLASS DOOR. PT APPEARS COMFORTABLE AT THIS TIME. CONT ORDERED. POX 94% Addendum: 04/17/20 at 2228 by Judith Dixon RT Amended: Links added.
[2020-04-18] VITALS (41 sets, daily range): BP systolic 95–127; BP diastolic 63–85
--- NOTE | 2020-04-18 00:12 | NUR ---
RT NOTE PT ON BIPAP #B6 ON CPAP MODE WITH MEDIUM MASK. PROTECTA-GEL IN PLACE. NO SKIN BREAKDOWN NOTED. BIPAP IS PLUGGED TO RED OUTLET. ALARMS ARE ON AND SET TO 7. PT CAN BE SEEN FROM CLOSED GLASS DOOR. PT IS SLEEPING AND APPEARS COMFORTABLE AT THIS TIME. CONT ORDERED. POX 95% Addendum: 04/18/20 at 0012 by Judith Dixon RT Amended: Links added.
[2020-04-18] MEDS: PIPERACILLIN-TAZOB 3.375GM 100 ML IV SCH ×4 (02:31→20:42)
--- NOTE | 2020-04-18 02:33 | NUR ---
RT NOTE PT ON BIPAP #B6 ON CPAP MODE WITH MEDIUM MASK. PROTECTA-GEL IN PLACE. NO SKIN BREAKDOWN NOTED. BIPAP IS PLUGGED TO RED OUTLET. ALARMS ARE ON AND SET TO 7. PT CAN BE SEEN FROM CLOSED GLASS DOOR. RT AT BEDSIDE FOR MASK ADJUSTMENT AND FIO2 TITRATION. ISAAK SOLANO NOTIFIED THAT FIO2 WAS DECREASED TO 50% CONT ORDERED. POX 99% Addendum: 04/18/20 at 0242 by Judith Dixon RT Amended: Links added.
--- NOTE | 2020-04-18 04:13 | NUR ---
RT NOTE PT ON BIPAP #B6 ON CPAP MODE WITH MEDIUM MASK. PROTECTA-GEL IN PLACE. NO SKIN BREAKDOWN NOTED. BIPAP IS PLUGGED TO RED OUTLET. ALARMS ARE ON AND SET TO 7. PT CAN BE SEEN FROM CLOSED GLASS DOOR. CONT ORDERED. POX 95% Addendum: 04/18/20 at 0429 by Judith Dixon RT Amended: Links added.
[2020-04-18] MEDS: FUROSEMIDE 20 MG/2 ML VIAL IV SCH ×2 (06:00→18:12)
[2020-04-18] MEDS: InsuLIN REG 1unit/0.01ml Soln (100units/ml) SC SCH ×4 (06:22→21:14)
[2020-04-18] MEDS: ACCU-CHEK COMFORT CURVE STRIP VI SCH ×4 (06:26→20:55)
[2020-04-18] MEDS: ALBUTEROL SULF 2.5 MG/0.5ML(0.5%) NEB SOLN NEB SCH ×3 (06:28→22:31)
[2020-04-18] MEDS: IPRATROPIUM BROM 0.5 MG/2.5ML INH SOL NEB SCH ×3 (06:28→22:31)
--- NOTE | 2020-04-18 07:18 | NUR ---
REPORT RECEIVED FROM ART APPRAISER RN
--- NOTE | 2020-04-18 08:11 | NUR ---
XRAY AT BEDSIDE
--- NOTE | 2020-04-18 08:15 | NUR ---
PT TAKEN OFF CPAP, AND PLACED BACK ON HFNC 50L 70% FIO2 TO EAT BREAKFAST. PT TOLERATING CHANGE WELL. SPO2 98% ON 50L 70% FIO2, HR 103, RR 25, BS CLEAR BILATERALLY. WILL CONTINUE TO MONITOR PT
[2020-04-18] MEDS: PANTOPRAZOLE 40 MG TAB PO SCH (09:31)
[2020-04-18] MEDS: DexAMETHasone SOD PHOS 4 MG/1ML SDV INJ IV SCH ×2 (09:31→20:42)
[2020-04-18] MEDS: ENOXAPARIN SOD 80 MG/0.8ML SYRINGE SC SCH ×2 (09:31→20:40)
[2020-04-18] MEDS: ZINC SULFATE 220mg CAP or TAB PO SCH (09:31)
[2020-04-18] MEDS: CHOLECALCIFEROL (VITD3) 1,000UNIT=25mCg TAB PO SCH (09:31)
[2020-04-18] MEDS: ASCORBIC ACID 1,000 MG TAB PO SCH (09:31)
--- NOTE | 2020-04-18 10:08 | NUR ---
CPAP UNABLE TO CPAP PATIENT AT THIS TIME. PATIENT USING ACCESSORY MUSCLES, FORCEFUL BREATHING, RR HIGH 30'S, INCREASED BLOOD PRESSURE AND DECREASE IN OXYGEN SATURATION. Addendum: 04/18/20 at 1422 by Olaf Gutiérrez RN WRONG PATIENT
--- NOTE | 2020-04-18 10:32 | NUR ---
FAMILY-DISABILITY RN RENETTA GUATEMALAN SPEAKER SPOKE WITH REGARDING DISABILITY WHERE TO FIND FORMS ONLINE AND NEED TO BRING TO PRIMARY CARE PHYSICIAN. VERBALIZED UNDERSTANDING.
--- NOTE | 2020-04-18 12:18 | NUR ---
PATIENT DOING ACTIVE RANGE OF MOTIONS OF ARMS AND LEGS
--- NOTE | 2020-04-18 15:45 | NUR ---
PATIENT RESTING NO S/S OF DISTRESS NOTED
--- NOTE | 2020-04-18 20:00 | NUR ---
PT ON HI FLOW 50L FIO2 50%, [id number]%. SR ON THE MONITOR. AFEBRILE. SWEENEY CATHETER DRAINING YELLOW URINE VIA GRAVITY. POC DISCUSSED, PT STATED UNDERSTANDING. SAFETY PRECAUTIONS IN PLACE. WILL CONTINUE TO MONITOR.
[2020-04-19] VITALS (24 sets, daily range): BP systolic 97–112; BP diastolic 63–79
--- NOTE | 2020-04-19 00:20 | NUR ---
CPAP RT PLACED PT ON CPAP, ADJUSTED SETTINGS TO EPAP 10, FIO2 60%, O2SAT 93%, TOLERATING WELL. SAFETY PRECAUTIONS IN PLACE. WILL CONTINUE TO MONITOR.
--- NOTE | 2020-04-19 03:04 | NUR ---
BIPAP PT TOLERATING BIPAP, SETTINGS 16/6 BUR14 FIO2 75%, [id number]%. SAFETY PRECAUTIONS IN PLACE, WILL CONTINUE TO MONITOR.
[2020-04-19] MEDS: PIPERACILLIN-TAZOB 3.375GM 100 ML IV SCH ×4 (03:31→22:24)
[2020-04-19] MEDS: FUROSEMIDE 20 MG/2 ML VIAL IV SCH ×2 (06:05→17:35)
[2020-04-19] MEDS: ACCU-CHEK COMFORT CURVE STRIP VI SCH ×4 (06:17→22:24)
[2020-04-19] MEDS: InsuLIN REG 1unit/0.01ml Soln (100units/ml) SC SCH ×4 (07:00→22:25)
--- NOTE | 2020-04-19 07:17 | NUR ---
REPORT RECEIVED FROM JOB CHANGE CREW MEMBER RN
[2020-04-19] MEDS: ALBUTEROL SULF 2.5 MG/0.5ML(0.5%) NEB SOLN NEB SCH ×3 (07:27→22:52)
[2020-04-19] MEDS: IPRATROPIUM BROM 0.5 MG/2.5ML INH SOL NEB SCH ×3 (07:28→22:52)
--- NOTE | 2020-04-19 08:21 | NUR ---
PATIENT PROVIDED WITH BREAKFAST TRAY
[2020-04-19] MEDS: ENOXAPARIN SOD 80 MG/0.8ML SYRINGE SC SCH ×2 (09:32→22:24)
[2020-04-19] MEDS: PANTOPRAZOLE 40 MG TAB PO SCH (09:32)
[2020-04-19] MEDS: ASCORBIC ACID 1,000 MG TAB PO SCH (09:32)
[2020-04-19] MEDS: ZINC SULFATE 220mg CAP or TAB PO SCH (09:32)
[2020-04-19] MEDS: CHOLECALCIFEROL (VITD3) 1,000UNIT=25mCg TAB PO SCH (09:33)
[2020-04-19] MEDS: DexAMETHasone SOD PHOS 4 MG/1ML SDV INJ IV SCH ×2 (09:33→22:24)
--- NOTE | 2020-04-19 10:18 | NUR ---
FAMILY UPDATED ON PATIENT STATUS. ALL QUESTIONS AND CONCERNS ADDRESSED AT THIS TIME
--- NOTE | 2020-04-19 11:35 | NUR ---
Nutrition Followup Notes wt: 83.6 kg Pt`s with COVID +ve on BIPAP, hence unable to talk to pt. pt is currently on CCHO 60 gm diet with adequate PO of > 75% x 2 days per RN doc Est. Energy Needs BW 84 [id number] kcal (25-30 kcal/kg BW), Est. Protein Needs: 84-100 gms/day (1.0-1.2 gms/kg BW). Will continue to monitor and reassess prn. LABS: GLU 326 H, CO2 34 H, BUN 27 H, ALB 2.5 L. GI: Pt had 1 BM today per RN doc. BS: 15 mod risk. Please refer to wound assessment report for full details. PES: Altered nutrient related lab values hypercapnia, hyperglycemia and elev TG r/t current medical condition Comments 1) Refer pt to RD for nutrition education upon D/C. 2) Continue current plan of care
--- NOTE | 2020-04-19 12:41 | NUR ---
PATIENT PROVIDED WITH BREAKFAST TRAY
--- NOTE | 2020-04-19 14:10 | NUR ---
PATIENT RESTING NO S/S OF DISTRESS NOTED
--- NOTE | 2020-04-19 15:37 | NUR ---
REPORT GIVEN TO VANDANA MULLIGAN TO ASSUME CARE
--- NOTE | 2020-04-19 16:24 | NUR ---
PATIENT TRANSFERRED TO ROOM 263 VIA ACLS GUIDELINES
--- NOTE | 2020-04-19 16:45 | NUR ---
RECEIVED PT A TRANSFER TO [facility]. PT AWAKE AND A/O X4. CONNECTED TO BEDSIDE MONITORING AND O2 BY ISAAK HOPE. CONTINUE TO MONITOR
--- NOTE | 2020-04-19 17:15 | NUR ---
PT RESTING IN BED WITH VSS: 96-29-99% AND 111/68. LUNGS CLEAR AND SLIGHTLY DIMINISHED. HIGH FLOW O2 AT 50% AND 50L FLOW. O2 SAT OF 99%. USED INCENTIVE SPIROMETER WITH 10 BREATHS UP TO 600ML. TELE SR 96. ABD SOFT WITH + BOWEL SOUNDS. LAST BM WAS `YESTERDAY. SWEENEY CATHETER DRAINING CLEAR YELLOW URINE. DENIES ANY PAIN. CONTINUE TO MONITOR.
--- NOTE | 2020-04-19 17:30 | NUR ---
ACCUCHECK OF 352 AND COVERED WITH 10 UNITS OF REGULAR INSULIN SQ.
--- NOTE | 2020-04-19 18:30 | NUR ---
PT SERVED DINNER.
--- NOTE | 2020-04-19 19:30 | NUR ---
OPENING NOTE REPORT RECEIVED FROM ROB MULLIGAN PATIENT IS A/OX4, PRIMARILY MALAY SPEAKING AND ABLE TO MAKE ALL NEEDS KNOWN. PATIENT CONNECTED TO CONTINUOUS MONITOR. HIGH FLOW NASAL CANNULA ON AT 50L AND FIO2 50%. SPO2 MONITOR REPLACED AND SPO2 READING AT 92%. IV IN PLACE TO LEFT FOREARM 20G INTACT AND PATENT. EDUCATED PATIENT THAT IV NEEDS TO BE REPLACED SINCE IT HAS BEEN IN FOR 6 DAYS NOW, PATIENT REFUSED. SWEENEY DRAINING CLEAR YELLOW URINE.NO SOB OR DISTRESS NOTED. POC DISCUSSED, ALL QUESTIONS ANSWERED. CALL LIGHT AND PHONE WITHIN REACH.
[2020-04-19] MEDS: POTASSIUM CHL 10 Meq TABLET PO SCH (22:24)
[2020-04-20] VITALS (10 sets, daily range): BP systolic 94–110; BP diastolic 62–75
--- NOTE | 2020-04-20 00:53 | NUR ---
DESATURATION PATIENT BEGAN DESATURATING TO 87% AND SUSTAINING. RT PAGED. RT OTONIEL AT BEDSIDE ADJUSTED HIGH FLOW TO 60L AND FIO2 NOW AT 70%. SATURATION NOW AT 92%. PATIENT RESTING COMFORTABLY IN BED.
[2020-04-20] MEDS: PIPERACILLIN-TAZOB 3.375GM 100 ML IV SCH ×4 (03:14→21:04)
--- NOTE | 2020-04-20 05:20 | NUR ---
[facility]ARE PATIENT GIVEN COMPLETE BED BATH USING WARM SOAPY WASH CLOTHS. PATIENTS LINEN COMPLETELY CHANGED AND NEW GOWN PROVIDED TO PATIENT. PATIENT WAS ABLE TO HELP TURN AND TOLERATED LYING FLAT FOR FULL DURATION OF BED BATH.
[2020-04-20] MEDS: FUROSEMIDE 20 MG/2 ML VIAL IV SCH ×2 (06:00→18:25)
[2020-04-20] MEDS: IPRATROPIUM BROM 0.5 MG/2.5ML INH SOL NEB SCH ×3 (06:18→22:15)
[2020-04-20] MEDS: ALBUTEROL SULF 2.5 MG/0.5ML(0.5%) NEB SOLN NEB SCH ×3 (06:18→22:15)
--- NOTE | 2020-04-20 06:18 | NUR ---
RECEIVED PT ON HFNC PLUGGED INTO RED OUTLET. AMBU BAG/MASK IS AT BEDSIDE. TITRATED FLOW FROM 60L, TO 50L, FIO2 REMAINS AT 70%. PT TOLERATING CHANGE WELL. WATER AT ADEQUATE LEVEL. PT BS CLEAR/DIMINISHED AT THE BASES. MEDNEB TX GIVEN VIA AEROGEN, WITH NO ADVERSE REACTIONS NOTED. PT TOLERATING HFNC WELL. NO SKIN BREAK DOWN, OR DISCOMFORT NOTED. WILL CONTINUE TO MONITOR PT. CHARTING COMPLETE FROM OUTSIDE OF PT ROOM.
--- NOTE | 2020-04-20 06:35 | NUR ---
TITRATION PATIENT TITRATED BY RT. HIGH FLOW AT 50L, FIO2 70%
[2020-04-20] MEDS: ACCU-CHEK COMFORT CURVE STRIP VI SCH ×4 (06:41→21:06)
[2020-04-20] MEDS: InsuLIN REG 1unit/0.01ml Soln (100units/ml) SC SCH ×4 (06:42→22:15)
--- NOTE | 2020-04-20 07:24 | NUR ---
CLOSING REPORT ENDORSED TO AM SHIFT ISAAK JIMENEZ. PATIENT IS SITTING UP IN BED CONNECTED TO MONITORS. HI FLOW NASAL CANNULA AT 50L, FIO2 70%, SPO2 AT 93%. NO SOB OR DISTRESS NOTED. CALL LIGHT WITHIN REACH.
--- NOTE | 2020-04-20 10:00 | NUR ---
Respiratory note: ROUTINE HFNC CHECK COMPLETE. WATER LEVEL IS ADEQUATE. PT IS RESTING COMFORTABLY. NO RESPIRATORY DISTRESS NOTED. WILL CONTINUE TO MONITOR PT. PT ON CONTINUOUS MONITORING. WILL CONTINUE TO MONITOR PT. CHARTING COMPLETE OUTSIDE OF ROOM.
[2020-04-20] MEDS: PANTOPRAZOLE 40 MG TAB PO SCH (10:15)
[2020-04-20] MEDS: DexAMETHasone SOD PHOS 4 MG/1ML SDV INJ IV SCH ×2 (10:15→21:05)
[2020-04-20] MEDS: ZINC SULFATE 220mg CAP or TAB PO SCH (10:15)
[2020-04-20] MEDS: ENOXAPARIN SOD 80 MG/0.8ML SYRINGE SC SCH ×2 (10:15→21:05)
[2020-04-20] MEDS: CHOLECALCIFEROL (VITD3) 1,000UNIT=25mCg TAB PO SCH (10:15)
[2020-04-20] MEDS: ASCORBIC ACID 1,000 MG TAB PO SCH (10:15)
[2020-04-20] MEDS: POTASSIUM CHL 10 Meq TABLET PO SCH ×2 (10:15→21:05)
[2020-04-20] MEDS ORDERED: DEXTROSE (50%) 50ML SYRG IV PRN (12:15)
--- NOTE | 2020-04-20 14:13 | NUR ---
Respiratory note: ROUTINE HFNC CHECK COMPLETE. WATER LEVEL IS ADEQUATE. TITRATED FLOW FROM 50L, TO 40L, TITRATED FIO2 FROM 70%, TO 60%. PT TOLERATED CHANGE WELL. MEDNEB TX GIVEN VIA AEROGEN, WITH NO ADVERSE EFFECTS NOTED. RN MADE AWARE. NO RESPIRATORY DISTRESS NOTED. WILL CONTINUE TO MONITOR PT.
--- NOTE | 2020-04-20 14:30 | NUR ---
Respiratory note: PT PLACED ON 8L OXYMIZER 64% FIO2. PT STATED THAT IT FELT BETTER TO HAVE A BREAK FROM THE BLOWING INTO HIS NOSE. HFNC AT BEDSIDE IF INCREASED FLOW IS NEEDED. SPO2 93%, HR 102, RR 26, BS CLEAR BILATERALLY/DIMINISHED BILATERALLY AT THE BASES. RN MADE AWARE. PT ON CONTINUOUS BEDSIDE MONITORING. WILL CONTINUE TO MONITOR PT.
--- NOTE | 2020-04-20 16:00 | NUR ---
Respiratory note: PT IS RESTING COMFORTABLY. NO RESPIRATORY DISTRESS NOTED. SPO2 95% ON 8L OXYMIZER 64% FIO2, HR 94, RR 26, BS CLEAR BILATERALLY/DIMINISHED BILATERALLY IN THE BASES. HFNC REMAINS AT BEDSIDE IF INCREASED FLOW IS REQUIRED FOR PT. NO FURTHER RESPIRATORY INTERVENTIONS INDICATED. PT ON CONTINUOUS BEDSIDE MONITORING. RN MADE AWARE. WILL ENDORSE PT STATUS TO HISTORICAL SOCIETY DIRECTOR.
--- NOTE | 2020-04-20 17:30 | NUR ---
Resumed care at 0720, orders reviewed and ongoing assessments being done. Being treated for Covid-19 and following isolation protocol per policy. Is alert, Estonian speaking and interacting appropriately. Does become SOB upon exertion and at times pulse oximetry <90%. Is a mouth breather and encouraged slow purse lip breathing. during activity. Upon start of shift on High Flow nasal cannula and at this time tolerating Oxymizer at 8L/min. Dr. Julian rounded today and was in at 1030. Continue current plan of care. Noon AccuStick >400. Contacted Dr. Julian and adjustments have been made to insulin management.
--- NOTE | 2020-04-20 18:09 | NUR ---
Respiratory note: Received pt from day shift RT. HR 93, RR 28, SPO2 95% on 8lpm oxymizer. Pt tolerating oxymizer well, denies SOB, sitting up in bed with no s/s of respiratory distress. High flow NC on standby at bedside, not indicated at this time. Will continue to monitor.
[2020-04-20] MEDS: INSULIN 70/30 1unit/0.01ml Susp (100units/ml) SC SCH (18:14)
--- NOTE | 2020-04-20 20:00 | NUR ---
OPENING NOTE REPORT RECEIVED FROM ROB MULLIGAN PATIENT IS A/OX4, PRIMARILY [place] SPEAKING AND ABLE TO MAKE ALL NEEDS KNOWN. THIS PATIENT IS POSITIVE FOR COVID, ISOLATION PRECAUTIONS IN PLACE. PATIENT CONNECTED TO CONTINUOUS MONITOR. PATIENT IS ON 8L OXYMIZER, SPO2 READING AT 93%. IV IN PLACE TO LEFT FOREARM 20G INTACT AND PATENT. SWEENEY DRAINING YELLOW URINE WITH SOME NOTED SEDIMENT. NO SOB OR DISTRESS NOTED. POC DISCUSSED, ALL QUESTIONS ANSWERED. CALL LIGHT AND PHONE WITHIN REACH.
--- NOTE | 2020-04-20 21:15 | NUR ---
IV LINE EDUCATED PATIENT THAT HIS CURRENT IV HAS BEEN IN FOR 7 DAYS AND PER PROTOCOL SHOULD BE CHANGED. PATIENT REFUSING AT THIS TIME AND STATES THAT IT DOES NOT HURT AND WORKS FINE. IV START KIT LEFT AT BEDSIDE, WILL ATTEMPT AGAIN LATER.
--- NOTE | 2020-04-20 22:15 | NUR ---
PT REMAINS ON OXYMIZER 8LPM, TOLERATING WELL, HR 101, RR 28, SPO2 92%. PT DENIES SOB AT THIS TIME, SAYS HE IS FEELING OK. HIGH FLOW AND BIPAP NOT INDICATED AT THIS TIME, AVAILABLE ON STANDBY AT BEDSIDE NEEDED. WILL CONTINUE TO MONITOR.
--- NOTE | 2020-04-20 22:50 | NUR ---
PT O2 DESAT TO 85-88%. INCREASED OXYMIZER TO 12LPM, SPO2 92%. PT DOES NOT APPEAR TO BE IN DISTRESS. NOTIFIED RN OF CHANGES. WILL CONTINUE TO MONITOR.
[2020-04-21] VITALS (8 sets, daily range): BP systolic 57–142; BP diastolic 32–75
[2020-04-21] MEDS: PIPERACILLIN-TAZOB 3.375GM 100 ML IV SCH ×4 (03:11→22:30)
--- NOTE | 2020-04-21 05:00 | NUR ---
AM CARE PATIENT GIVEN PARTIAL BED BATH. PATIENT REFUSED COMPLETE BED BATH AT THIS TIME. PATIENT WIPED WITH CHG WIPES, NEW GOWN PLACED ON PATIENT. PATIENT PROVIDED WITH ORAL CARE, TEETH BRUSHED AND MOUTH WASH GIVEN. LOTION APPLIED TO PATIENTS BILATERAL FEET PER REQUEST. PATIENT REPOSITIONED, PULLED UP IN BED.
[2020-04-21 05:45] LABS: Basophils # (auto) 0 10 ^3/uL (0-0.2); Eosinophils # (auto) 0 10 ^3/uL (0-0.8); Lymphocytes # (auto) 0.4 10 ^3/uL (0.4-5.4); Red Cell Distribution Width 13.7 % (11.8-14.3)
[2020-04-21 05:47] LABS: Basophils % (auto) 0.5 % (0.0-2.0); Hematocrit 50.7 % (41.0-53.0); Lymphocytes % (auto) 4.4 % (10.0-50.0); Mean Corpuscular Hemoglobin 31.1 pg (28.0-32.0); Mean Corpuscular Hgb Conc. 33.6 g/dL (32.0-36.0); Mean Corpuscular Volume 92.6 fL (80.0-100.0); Monocytes # (auto) 0.5 10 ^3/uL (0-1.3); Neutrophils % (auto) 89.1 % (37.0-80.0); Nucleated Red Blood Cells % 0.1 %; Red Blood Cells 5.48 10^6/uL (4.5-5.90)
[2020-04-21 05:48] LABS: Platelet Count (auto) 531 10^3/uL (140-450)
[2020-04-21 06:01] LABS: Albumin 2.9 g/dL (3.4-5.0); Calcium 9.3 mg/dL (8.5-10.1); Magnesium 2.6 mg/dL (1.6-2.6); Potassium 4.1 mmol/L (3.5-5.1)
[2020-04-21 06:06] LABS: BUN/Creatinine Ratio 37.3; CRP High Sensitivity 0.71 mg/dL (< 0.3); Total Protein 6.8 g/dL (6.4-8.2)
[2020-04-21] MEDS: InsuLIN REG 1unit/0.01ml Soln (100units/ml) SC SCH ×4 (06:30→22:19)
[2020-04-21] MEDS: ALBUTEROL SULF 2.5 MG/0.5ML(0.5%) NEB SOLN NEB SCH (06:37)
[2020-04-21] MEDS: IPRATROPIUM BROM 0.5 MG/2.5ML INH SOL NEB SCH (06:37)
[2020-04-21] MEDS: ACCU-CHEK COMFORT CURVE STRIP VI SCH ×4 (06:44→22:18)
--- NOTE | 2020-04-21 07:40 | NUR ---
CLOSING PATIENT IS SITTING UP IN BED, CONNECTED TO CONTINUOUS MONITORS. HEART RATE IN 90'S, SPO2 AT 95% ON 12L OXYMIZER. PATIENT STABLE. REPORT ENDORSED TO DAYSKYFT ISAAK HORTON TO ASSUME CARE OF PATIENT.
--- NOTE | 2020-04-21 07:45 | NUR ---
OPENING SHIFT NOTE Received report from NOC RN, Kaylie. Assumed care of patient. Received patient sitting up in bed, connected to bedside monitor. Patient is zambian speaking, and is A&Ox4 and denies pain. Patient is on Novel Respiratory isolation for COVID-19. Patient on Oxymizer at 10L with O2 sats 91-94%. Patient with PIV to left FA #20 and is currently infusing Zosyn IV abx. Fishman draining to gravity dark yellow output. Bed is in lowest position, rails x3 up and call light within reach. Updated on plan of care. Will continue to monitor.
--- NOTE | 2020-04-21 09:40 | NUR ---
MD Dr Santoyo to see patient. No new orders received.
[2020-04-21] MEDS: INSULIN 70/30 1unit/0.01ml Susp (100units/ml) SC SCH ×2 (09:57→18:21)
[2020-04-21] MEDS: DexAMETHasone SOD PHOS 4 MG/1ML SDV INJ IV SCH ×2 (09:59→22:30)
[2020-04-21] MEDS: POTASSIUM CHL 10 Meq TABLET PO SCH ×2 (10:00→22:30)
[2020-04-21] MEDS: PANTOPRAZOLE 40 MG TAB PO SCH (10:00)
[2020-04-21] MEDS: ZINC SULFATE 220mg CAP or TAB PO SCH (10:00)
[2020-04-21] MEDS: ASCORBIC ACID 1,000 MG TAB PO SCH (10:02)
[2020-04-21] MEDS: CHOLECALCIFEROL (VITD3) 1,000UNIT=25mCg TAB PO SCH (10:03)
[2020-04-21] MEDS: ENOXAPARIN SOD 80 MG/0.8ML SYRINGE SC SCH ×2 (10:03→22:30)
--- NOTE | 2020-04-21 10:05 | NUR ---
MD Dr Julian to see patient. Orders received.
[2020-04-21] MEDS: ALBUTEROL SULF HFA 90MCG INH 200DOSE IN SCH ×3 (14:10→22:30)
--- NOTE | 2020-04-21 15:15 | NUR ---
SWEENEY Sweeney catheter removed with no complications. 700ml urine noted in bag. Patient provided urinal. Will continue to monitor.
--- NOTE | 2020-04-21 19:12 | NUR ---
CLOSING SHIFT NOTE: Patient resting in bed after eating dinner. Patient with no s/s of distress noted. Patient remains on Oxymizer at 10L with O2 sats 93%. Patient still has yet to void via urinal. Report to be given to ARCHIE MULLIGAN.
--- NOTE | 2020-04-21 19:49 | NUR ---
REPORT RECEIVED AND ASSUMED CARE; SEE INTERVENTIONS FOR ASSESSMENT; VS STABLE AT THIS TIME- WITH PT. ON 10L OXYMIZER; WILL CONT. TO MONITOR.
--- NOTE | 2020-04-21 22:30 | NUR ---
s/w patient and he has not urinated since goode removed at 15:00 as per shift report; I explained that if by midnight that he has not urinated, i will bladder scan him and might have to replace goode catheter.
[2020-04-22] VITALS: BP_SYST 106; BP_SYST 99; BP_DIAS 65; BP_DIAS 66
--- NOTE | 2020-04-22 | NUR ---
Bladder scan= 409ml; will replace goode catheter.
--- NOTE | 2020-04-22 01:45 | NUR ---
PT. USED URINAL AND PUT OUT 150ML-REFUSING SWEENEY PLACEMENT AT THIS TIME; WILL CONT. TO MONITOR.
[2020-04-22] MEDS: PIPERACILLIN-TAZOB 3.375GM 100 ML IV SCH ×4 (03:00→22:10)
[2020-04-22 04:00] VITALS: BP 96/65
--- NOTE | 2020-04-22 04:00 | NUR ---
CCT AT BEDSIDE AND PT. PUT OUT 200ML OF URINE IN URINAL; WILL CONT. TO MONITOR.
[2020-04-22] MEDS: InsuLIN REG 1unit/0.01ml Soln (100units/ml) SC SCH ×4 (07:00→22:11)
[2020-04-22] MEDS: ACCU-CHEK COMFORT CURVE STRIP VI SCH ×4 (07:00→22:10)
--- NOTE | 2020-04-22 07:45 | NUR ---
OPENING SHIFT NOTE Received report from NOC RN, Swati Bee Assumed care of patient. Received patient sitting up in bed, connected to bedside monitor. Patient is bengali speaking, and is A&Ox4 and denies pain. Patient is on Novel Respiratory isolation for COVID-19. Patient on Oxymizer at 10L with O2 sats 91-94%. Patient with PIV to left FA #20 and is currently infusing Zosyn IV abx. Patient has been voiding via urinal. Bed is in lowest position, rails x3 up and call light within reach. Updated on plan of care. Will continue to monitor.
[2020-04-22] MEDS: INSULIN 70/30 1unit/0.01ml Susp (100units/ml) SC SCH ×2 (08:00→18:10)
[2020-04-22 08:35] VITALS: BP 108/65
--- NOTE | 2020-04-22 09:45 | NUR ---
OXYGEN Patient O2 sats 05-96% on 10L Oxymizer. Decreased to 8L Oxymizer. Patient tolerating well. O2 sats 92%. Patient with no s/s of distress. Respiratory rate 29. Katiuska, RT covering for Yessina, RT made aware of adjustment.
[2020-04-22] MEDS: ASCORBIC ACID 1,000 MG TAB PO SCH (10:07)
[2020-04-22] MEDS: PANTOPRAZOLE 40 MG TAB PO SCH (10:07)
[2020-04-22] MEDS: POTASSIUM CHL 10 Meq TABLET PO SCH ×2 (10:07→22:10)
[2020-04-22] MEDS: DexAMETHasone SOD PHOS 4 MG/1ML SDV INJ IV SCH (10:07)
[2020-04-22] MEDS: CHOLECALCIFEROL (VITD3) 1,000UNIT=25mCg TAB PO SCH (10:07)
[2020-04-22] MEDS: ENOXAPARIN SOD 80 MG/0.8ML SYRINGE SC SCH ×2 (10:07→22:10)
[2020-04-22] MEDS: ZINC SULFATE 220mg CAP or TAB PO SCH (10:07)
--- NOTE | 2020-04-22 11:00 | NUR ---
MD Dr Boland on unit to see patient. Orders received to downgrade to tele. states she will assess patient once patient is in tele COVID unit.
[2020-04-22 12:00] VITALS: BP 101/63
--- NOTE | 2020-04-22 12:38 | NUR ---
Nutrition Followup Notes wt: 81.1 kg Pt`s with COVID + hence unable to talk to pt. pt is currently on CCHO 60 gm diet with continued adequate PO of > 75% x 2 days per RN doc Est. Energy Needs BW 84 [id number] kcal (25-30 kcal/kg BW), Est. Protein Needs: 84-100 gms/day (1.0-1.2 gms/kg BW). Will continue to monitor and reassess prn. LABS: GLUC 238H, BUn 31H, Alb 2.9L GI: Pt had 1 BM 04/18 per RN doc. BS: 15 mod risk. Please refer to wound assessment report for full details. PES: Altered nutrient related lab values hypercapnia, hyperglycemia and elev TG r/t current medical condition Comments 1) Refer pt to RD for nutrition education upon D/C. 2) Continue current plan of care f/u 3-5 days
[2020-04-22] MEDS: ALBUTEROL SULF HFA 90MCG INH 200DOSE IN SCH ×2 (14:28→22:00)
[2020-04-22 15:54] VITALS: BP 104/62
--- NOTE | 2020-04-22 16:25 | NUR ---
OXYGEN Patient resting in bed with O2 sats 96% on 8L Oxymizer. Patient with no s/s of distress. Decreased O2 to 6L Oxymizer. Patient's O2 sats remain 95-96%. Patient tolerating well and speaking to nurse with no significant distress noted. Yessina, RT notified.
--- NOTE | 2020-04-22 19:00 | NUR ---
CLOSING SHIFT NOTE: Patient resting in bed after eating dinner. Patient with no s/s of distress noted. Patient on Oxymizer at 6L with O2 sats 93-95%. Patient is a tele downgrade awaiting bed assignment. Report to be given to ARCHIE MULLIGAN.
[2020-04-22 20:00] VITALS: BP 120/83
--- NOTE | 2020-04-22 20:00 | NUR ---
OPENING NOTE PT RESTING IN BED ON 6L OXYMIZER, NO SIGN OF SOB, PT IS ALERT AND ORIENTED X4, PRIMARILY TAMAZIGHT SPEAKER. BED IN LOWEST POSITION, RAILS X2, ORIENTED TO CALL LIGHT AND URINAL. WILL RESUME THE CARE OF PATIENT.
[2020-04-23] VITALS: BP 106/65
[2020-04-23 00:58] VITALS: BP 106/68
[2020-04-23] MEDS: PIPERACILLIN-TAZOB 3.375GM 100 ML IV SCH ×4 (03:12→21:00)
[2020-04-23 04:00] VITALS: BP 96/63
[2020-04-23 04:38] LABS: Basophils # (auto) 0 10 ^3/uL (0-0.2); Basophils % (auto) 0.2 % (0.0-2.0); Eosinophils # (auto) 0.1 10 ^3/uL (0-0.8); Hematocrit 45.9 % (41.0-53.0); Hemoglobin 15.6 g/dL (13.5-17.5); Lymphocytes # (auto) 1.6 10 ^3/uL (0.4-5.4); Lymphocytes % (auto) 16.2 % (10.0-50.0); Mean Corpuscular Hemoglobin 31.2 pg (28.0-32.0); Mean Corpuscular Volume 91.6 fL (80.0-100.0); Monocytes % (auto) 10.1 % (0.0-12.0); Neutrophils % (auto) 72.5 % (37.0-80.0); Platelet Count (auto) 437 10^3/uL (140-450); Red Blood Cells 5.01 10^6/uL (4.5-5.90); Red Cell Distribution Width 13.7 % (11.8-14.3); White Blood Cell 9.7 10^3/uL (4.4-10.8)
[2020-04-23 04:57] LABS: Potassium 3.6 mmol/L (3.5-5.1)
[2020-04-23 05:02] LABS: BUN/Creatinine Ratio 34.8; Calcium 8.8 mg/dL (8.5-10.1)
[2020-04-23] MEDS: ALBUTEROL SULF HFA 90MCG INH 200DOSE IN SCH ×3 (05:51→21:35)
[2020-04-23] MEDS: InsuLIN REG 1unit/0.01ml Soln (100units/ml) SC SCH ×4 (06:44→21:51)
[2020-04-23] MEDS: ACCU-CHEK COMFORT CURVE STRIP VI SCH ×4 (06:44→21:51)
--- NOTE | 2020-04-23 07:10 | NUR ---
CLOSING NOTE PT RESTING IN BED NO SIGNS OR SYMPTOMS OF SOB. PT RESTING COMFORTABLY IN BED.
--- NOTE | 2020-04-23 07:50 | NUR ---
OPENING Report received from Stone ALMANZA RN. Care initiated and initial assessment complete.
[2020-04-23 08:00] VITALS: BP 102/68
[2020-04-23] MEDS: INSULIN 70/30 1unit/0.01ml Susp (100units/ml) SC SCH ×2 (08:00→18:21)
--- NOTE | 2020-04-23 08:50 | NUR ---
BED ASSIGNMENT RECEIVED Room 235.
--- NOTE | 2020-04-23 09:15 | NUR ---
Report received report from BECCA RN.
--- NOTE | 2020-04-23 09:50 | NUR ---
TRANSFERRED Patient transferred to room 235.
--- NOTE | 2020-04-23 09:58 | NUR ---
BECCA pt transferred to floor [facility] transfered to 235 via wheel chiar on cardiac rehabilitation specialist, portable 02 and accompanied by BECCA staff. All patient medications and personal belongings with patient.
[2020-04-23] MEDS: POTASSIUM CHL 10 Meq TABLET PO SCH (12:00)
[2020-04-23] MEDS: PANTOPRAZOLE 40 MG TAB PO SCH (12:00)
[2020-04-23] MEDS: ZINC SULFATE 220mg CAP or TAB PO SCH (12:01)
[2020-04-23] MEDS: ENOXAPARIN SOD 80 MG/0.8ML SYRINGE SC SCH ×2 (12:01→22:25)
[2020-04-23] MEDS: CHOLECALCIFEROL (VITD3) 1,000UNIT=25mCg TAB PO SCH (12:03)
[2020-04-23] MEDS: ASCORBIC ACID 1,000 MG TAB PO SCH (12:03)
--- NOTE | 2020-04-23 15:30 | NUR ---
Oxygen Patient titrated down to 5L via oximizer. Patient o2 saturations is at 95-96%. No signs and symptoms of distress noted. Will continue to monitor.
--- NOTE | 2020-04-23 16:00 | NUR ---
Physician rounding Dr. Shaikh garcia. Updated her on patient status, no new orders received.
[2020-04-23] MEDS ORDERED: DEXTROSE (50%) 50ML SYRG IV PRN (16:15)
[2020-04-23 16:30] VITALS: BP 104/64
--- NOTE | 2020-04-23 17:05 | NUR ---
Oxygen titration Per Dr. Boland continue to titrate O2 as tolerated. Patient now on 3L oxygen saturation is 96% via oximizer. No signs and symptoms of shortness of breath noted, will continue to monitor q1hr and PRN.
--- NOTE | 2020-04-23 18:27 | NUR ---
Physician rounding Dr. Lincoln at bed side, updated him on patient status. No new orders received.
--- NOTE | 2020-04-23 19:25 | NUR ---
end of shift note Endorsed care of patient to NOC ISAAK Monzon. No s/s of distress noted.
--- NOTE | 2020-04-23 19:30 | NUR ---
Opening Shift Note Assumed care of patient, awake and alert, no S/S of distress/SOB or pain. Call light within reach, bed in lowest position x2 side rails, HOB high fowlers. Instructed on POC and to call for assist PRN, will continue to monitor for changes Q1hr and PRN.
[2020-04-23 20:00] VITALS: BP 95/64
[2020-04-24] MEDS: PIPERACILLIN-TAZOB 3.375GM 100 ML IV SCH ×3 (02:35→15:36)
[2020-04-24 05:04] VITALS: BP 105/54
[2020-04-24] MEDS: ALBUTEROL SULF HFA 90MCG INH 200DOSE IN SCH ×3 (06:00→22:04)
[2020-04-24] MEDS: ACCU-CHEK COMFORT CURVE STRIP VI SCH ×4 (06:48→22:14)
[2020-04-24] MEDS: InsuLIN REG 1unit/0.01ml Soln (100units/ml) SC SCH ×4 (06:48→22:16)
[2020-04-24 09:00] VITALS: BP 107/76
[2020-04-24] MEDS: INSULIN 70/30 1unit/0.01ml Susp (100units/ml) SC SCH ×2 (09:07→18:25)
[2020-04-24] MEDS: ENOXAPARIN SOD 80 MG/0.8ML SYRINGE SC SCH (09:18)
[2020-04-24] MEDS: CHOLECALCIFEROL (VITD3) 1,000UNIT=25mCg TAB PO SCH (09:19)
[2020-04-24] MEDS: PANTOPRAZOLE 40 MG TAB PO SCH (09:19)
[2020-04-24] MEDS: ZINC SULFATE 220mg CAP or TAB PO SCH (09:19)
[2020-04-24] MEDS: ASCORBIC ACID 1,000 MG TAB PO SCH (09:35)
--- NOTE | 2020-04-24 13:22 | NUR ---
D/C Planning Per SS consult for home O2. Faxed clinical information to [facility] requesting for them to deliver oxygen to bedside. Per Kelly with [employer] ) they will deliver portable to bedside between 13:30-15:00. Informed RN Will.
--- NOTE | 2020-04-24 15:30 | NUR ---
HOME O2 DELIVERED.
--- NOTE | 2020-04-24 16:30 | NUR ---
SPOKE ON PHONE WITH DR SCHILLING AND PT REGARDING DC PLANNING. PT C/O BLOOD CLOTS COMING FROM HIS NOSE. STATED THIS HAS BEEN ONGOING AND CLOTS USUALLY EXPEL IN THE MORNING. VITALS AND Hgb WNL. DR SCHILLING INSTRUCTED TO NOTIFY DR LUA. DR LUA ORDER DC OF LOVENOX AND TO KEEP PT FOR TONIGHT. DR SCHILLING IS AWARE.
[2020-04-24 17:42] VITALS: BP 125/75
--- NOTE | 2020-04-24 18:46 | NUR ---
MRSA SWAB COLLECTED AND SENT TO LAB.
[2020-04-24 21:00] VITALS: BP 110/74
--- NOTE | 2020-04-24 21:33 | NUR ---
RT NOTE PT WAS SEEN BY RT FOR MDI TX. PT TOLERATES WELL VIA SPACER. PT IS ON BEDSIDE POX. CONT ORDERED Addendum: 04/24/20 at 2336 by Judith Dixon RT Amended: Links added.
[2020-04-24] MEDS: DOXYCYCLINE 100 MG TAB/CAP PO SCH (22:14)
[2020-04-25 05:00] VITALS: BP 99/70
[2020-04-25] MEDS: ACCU-CHEK COMFORT CURVE STRIP VI SCH ×2 (06:14→12:12)
[2020-04-25] MEDS: InsuLIN REG 1unit/0.01ml Soln (100units/ml) SC SCH ×2 (06:14→12:14)
[2020-04-25] MEDS: ALBUTEROL SULF HFA 90MCG INH 200DOSE IN SCH ×2 (06:14→13:05)
--- NOTE | 2020-04-25 07:41 | NUR ---
Opening Shift Note Assumed care of patient, awake and alert, niuean speaking. No S/S of distress/SOB, remains on 4l. Denies pain. Instructed on POC and to call for assist PRN, will continue to monitor for changes Q1hr and PRN.
[2020-04-25 08:19] VITALS: BP 104/63
[2020-04-25] MEDS: INSULIN 70/30 1unit/0.01ml Susp (100units/ml) SC SCH (09:49)
[2020-04-25] MEDS: PANTOPRAZOLE 40 MG TAB PO SCH (11:56)
[2020-04-25] MEDS: ZINC SULFATE 220mg CAP or TAB PO SCH (11:56)
[2020-04-25] MEDS: CHOLECALCIFEROL (VITD3) 1,000UNIT=25mCg TAB PO SCH (11:57)
[2020-04-25] MEDS: DOXYCYCLINE 100 MG TAB/CAP PO SCH (11:57)
[2020-04-25] MEDS: ASCORBIC ACID 1,000 MG TAB PO SCH (11:57)
[2020-04-25 13:00] VITALS: BP 122/72
--- NOTE | 2020-04-25 16:04 | NUR ---
Discharge instructions given as ordered. Encourage to follow up with PMD as instructed. All questions and concerns addressed. Patient verbalized understanding. Medication reconciliation form completed and copy given to patient. Home medications held in Pharmacy returned to patient, . IV removed with catheter intact, pressure dressing applied, goode catheter removed. Telemetry unit returned to ICU. Patient taken to vehicle via wheelchair with all personal belongings, accompanied by staff to family member. No distress noted at time of departure.
== END 2020-04-25 15:45 | disposition home or self-care (01) | DRG 871 ==
LOC: EDBD 07:11 → ER 07:11 → OVERFLOW 07:12 → ICU WEST 11:07 → DOU IN ICU 04-19 16:18 → EAST 04-23 10:14 → TELE-E-ADS 04-24 09:10
PROVIDERS: ADMIT Nurse Practitioner Acute Care; ATTEND Internal Medicine
PROC: 5A09357 Assistance with Respiratory Ventilation, Less than 24 Consecutive Hours, Continuous Positive Airway Pressure (ICD-10-PCS; 2020-04-13)
PROC: 0BH17EZ Insertion of Endotracheal Airway into Trachea, Via Natural or Artificial Opening (ICD-10-PCS; 2020-04-13)
PROC: 5A09357 Assistance with Respiratory Ventilation, Less than 24 Consecutive Hours, Continuous Positive Airway Pressure (ICD-10-PCS; principal; 2020-04-14)
PROC: 5A09357 Assistance with Respiratory Ventilation, Less than 24 Consecutive Hours, Continuous Positive Airway Pressure (ICD-10-PCS; 2020-04-15)
PROC: 5A09357 Assistance with Respiratory Ventilation, Less than 24 Consecutive Hours, Continuous Positive Airway Pressure (ICD-10-PCS; 2020-04-16)
PROC: 5A09357 Assistance with Respiratory Ventilation, Less than 24 Consecutive Hours, Continuous Positive Airway Pressure (ICD-10-PCS; 2020-04-17)
PROC: 5A09357 Assistance with Respiratory Ventilation, Less than 24 Consecutive Hours, Continuous Positive Airway Pressure (ICD-10-PCS; 2020-04-18)
PROC: 5A1935Z Respiratory Ventilation, Less than 24 Consecutive Hours (ICD-10-PCS; 2020-04-19)
DX: A41.89 Other specified sepsis (principal); U07.1 COVID-19; J12.89 Other viral pneumonia; J96.01 Acute respiratory failure with hypoxia; I21.A1 Myocardial infarction type 2; E87.1 Hypo-osmolality and hyponatremia; E87.6 Hypokalemia; E11.9 Type 2 diabetes mellitus without complications; E66.3 Overweight; R04.0 Epistaxis; Z79.84 Long term (current) use of oral hypoglycemic drugs; Z68.24 Body mass index [BMI] 24.0-24.9, adult
CPT/HCPCS: 36415; 36600; 71045; 80048; 80053; 80061; 80307; 81001; 82728; 82805; 82962; 83036; 83605; 83615; 83735; 83880; 84132; 84443; 84484; 85025; 85379; 86141; 87040; 87070; 87081; 87804; 87880; 93005; 94640; 94660; 99291; G0378; J0696; J1100; J1815; J2543